=== PATIENT | female | born 1950 | race Caucasian/White ===

== ENCOUNTER 2023-03-17 09:27 | Emergency (ER) | payer MEDICARE, SELFPAY ==
--- NOTE | ~2023-03-17 | CT_ITS ---
EXAMINATION: CT CHEST WITH CONTRAST CLINICAL INFORMATION: Question of clavicular mass. COMPARISON: Chest radiographs from earlier today. TECHNIQUE: Multidetector volumetric CT imaging of the chest was obtained after the administration of 50 mL of Omnipaque 350 intravenous contrast without immediate adverse reactions. Axial MIP volume rendering provided. Sagittal and coronal reformatted images were obtained. Mild motion artifact limits evaluation. This CT examination was performed using dose optimization techniques as appropriate, variously including the following: *Automated exposure control *Adjustment of mA and/or kV according to patient size (this includes techniques or standardized protocols for targeted exams where dose is matched to indication/reason for exam; i.e. extremities or head) *Use of iterative reconstruction technique DLP: 369 mGy-cm FINDINGS: LUNGS/PLEURA/AIRWAYS: Limited secondary to respiratory motion artifact. No significant/suspicious pulmonary nodules. No focal consolidation or pleural effusions. No pneumothorax. Minimal atelectasis/scarring in the right middle lobe and lingula. The airways are patent. MEDIASTINUM: The thyroid gland is unremarkable. The thoracic aorta is unremarkable. No pericardial effusion. No mediastinal or hilar lymphadenopathy. UPPER ABDOMEN: Unremarkable. MUSCULOSKELETAL: A rudimentary left first rib is seen. Mild to moderate multilevel marginal osteophyte formation is seen. In the thoracolumbar spine most pronounced inferiorly in the thoracic spine on the right. Vertebral body fusion is seen at C7-T1. There is no acute fracture. Mild thoracic dextroscoliosis is noted. SOFT TISSUES: No significant soft tissue abnormality. CT/CT chest w IV con IMPRESSION: 1. Limited evaluation of the supraclavicular region without overt abnormality. If the patient's palpable abnormality persists or enlarges, targeted soft tissue ultrasound in this region is recommended. 2. No significant pulmonary abnormality. Routine radiographic follow-up as clinically indicated.
--- NOTE | ~2023-03-17 | US_ITS ---
EXAMINATION: US VENOUS ULTRASOUND WITH DOPPLER LOWER EXTREMITY, LEFT CLINICAL INFORMATION: Left lower extremity pain and swelling with redness. COMPARISON: None available. TECHNIQUE: Ultrasound of the deep veins is performed from the hip to the calf with compression sonography and color and pulse Doppler assessment. Spectral analysis with color-flow imaging is performed. FINDINGS: There is normal venous compression and respiratory variation and augmented flow. The visualized common femoral vein, superficial femoral vein, profunda femoral vein, popliteal vein, and the trifurcation region shows no evidence of deep venous thrombosis. Enlarged left inguinal lymph node with reniform shape measuring up to 3.3 cm in long axis. No left popliteal cyst. The subcutaneous soft tissues are unremarkable. US/US venous duplex LE LT IMPRESSION: 1. No evidence for deep venous thrombosis in the visualized veins of the left lower extremity. 2. Mildly enlarged left inguinal lymph node is nonspecific, but demonstrates overall benign features and could be reactive. Correlate with physical exam. * If these findings persist or enlarge, short-term repeat targeted soft tissue ultrasound can be performed as clinically indicated to assess for change.
--- NOTE | ~2023-03-17 | XR_ITS ---
EXAMINATION: XR CHEST CLINICAL INFORMATION: Mass in the right clavicular region. COMPARISON: None available. TECHNIQUE: 2 views of the chest were obtained. FINDINGS: The lungs are clear. There are no pleural effusions. The heart and mediastinal structures are unremarkable. Possible small soft tissue nodular densities overlying of the supraclavicular regions bilaterally. The soft tissues are otherwise unremarkable. XR/XR chest 2V IMPRESSION: 1. No acute cardiopulmonary process. 2. Small soft tissue nodular densities overlying the supraclavicular regions bilaterally are nonspecific. Given the palpable abnormality, targeted soft tissue ultrasound in this regions is recommended.
--- NOTE | ~2023-03-17 | US_ITS ---
EXAMINATION: US SOFT TISSUE RIGHT SHOULDER CLINICAL INFORMATION: Clinical or mass COMPARISON: None available. TECHNIQUE: Ultrasound of the right shoulder soft tissues is performed with high- frequency nelson-scale imaging and color Doppler. FINDINGS: The area of palpable mass in right shoulder corresponding to mid clavicle revealed ill-defined hypoechoic complex lesion at the supraclavicular region, measured approximately 3.0 x 2.8 x 2.6 cm. This area revealed cystic and solid components and shadowing calcifications. Minimal vascularity is present also. US/US soft tiss head and/or neck IMPRESSION: Unclear origin heterogeneous mass in adjacent to the area of point tenderness in the left clavicle Correlate with clinical history and CT scan.
[2023-03-17 09:30] VITALS: BP 129/60; PULSE 87; RESP 16; TEMP 36.7; O2SAT 98; BMI 38.7
--- NOTE | 2023-03-17 09:47 | ED.GENADULT ---
HPI - General Adult General Chief complaint: Skin/Abscess/Foreign Body Stated complaint: L Leg Rash Time Seen by Provider: 03/17/23 09:47 Source: patient Mode of arrival: ambulatory Limitations: no limitations History of Present Illness HPI narrative: Patient is a 72 year old assigned female at with a history of HTN presenting to the emergency department today with left lower leg pain / rash and a chest mass. Patient states that she has a left lower leg rash that hurts and appeared over night. Patient states that she also noticed a mass over her right clavicle. Patient denies any dizziness, lightheadedness, abdominal pain, nausea, vomiting, fever, chills, blurry vision, double vision, loss of vision, chest pain, difficulty breathing, shortness of breath, back pain, night sweats, pain with urination, increased urinary frequency, increased urinary urgency, blood in her urine or stool, syncope or a near syncopal episode, recent trauma or falls, bowel incontinence, bladder incontinence, bowel retention, bladder retention, or any other complaints at this time. Onset (ago): hour(s) Location: chest (right clavicle), left and lower extremity Severity: mild Relieving factors: none Exacerbating factors: none Associated symptoms: denies other symptoms Treatments prior to arrival: none Related Data Previous Rx's Medication Instructions Recorded doxycycline hyclate 100 mg tablet 100 mg PO BID 7 days #14 tabs 03/17/23 prednisone 20 mg tablet 20 mg PO DAILY 7 days #7 tabs 03/17/23 Allergies Allergy/AdvReac Type Severity Reaction Status Date / Time penicillin G [PENICILLIN G] Allergy Unknown RASH Verified 03/17/23 12:41 penicillin V Allergy Unknown rash Verified 02/17/17 00:00 Review of Systems Constitutional: Constitutional: Reports no additional constitutional complaints, Denies chills, Denies fever(s) and Denies night sweats Eyes: Eyes: Reports no additional eye complaints, Denies blurry vision, Denies change in vision, Denies diplopia, Denies eye discharge, Denies loss of vision and Denies eye pain ENT: Denies dizziness Cardiovascular: Cardiovascular: Reports no additional cardiovascular complaints, Denies chest pain, Denies lightheadedness, Denies Loss of Consciousness and Denies dyspnea Respiratory: Respiratory: Reports no additional respiratory complaints and Denies dyspnea Gastrointestinal: Gastrointestinal: Reports no additional gastrointestinal complaints, Denies abdominal pain, Denies melena, Denies hematochezia, Denies change in bowel habits and Denies change in stool character Genitourinary: Genitourinary: Denies hematuria, Denies urinary frequency, Denies dysuria, Denies urinary incontinence, Denies urinary hesitancy and Denies urinary urgency Musculoskeletal: Musculoskeletal: Reports no additional musculoskeletal complaints, Denies numbness and Denies tingling Comments: right clavicle mass Integumentary/Breasts: Comments: rash to left lower leg Neurologic: Denies dizziness, Denies loss of vision, Denies numbness and Denies tingling Psychiatric: Psychiatric: Reports no additional psychiatric complaints Endocrine: Endocrine: Reports no additional endocrine complaints Hematologic/Lymphatic: Hematologic/Lymphatic: Reports no additional hematologic/lymphatic complaints Allergic/Immunologic: Allergic/Immunologic: Reports no additional allergic/immunologic complaints PMFSH Past Medical History Attestation statement: The following information was validated with the patient. Source: old records reviewed and nursing notes reviewed Social History Social History Advance Directives: No Advance Directives Information Provided: No Physical Exam ED Vital Signs: Vital Signs - 24 hr 03/17/23 09:30 03/17/23 16:31 Temperature 98.1 F 98.0 F Pulse Rate 87 78 Respiratory Rate 16 15 Blood Pressure 129/60 130/59 L Pulse Oximetry 98 96 Oxygen Delivery Method Room Air Room Air BMI result Body Mass Index 38.7 Const General: cooperative, no acute distress, alert and awake Nutritional Appearance: well nourished Orientation/consciousness: patient oriented x3 Limitations: no limitations [facility] Head: Yes normal to inspection and Yes atraumatic Ears: hearing grossly normal bilaterally and external ears normal General nose exam: Normal external nose present, no nasal discharge noted and no epistaxis Face and sinus: Yes normal facial exam, No abrasion and No laceration Mouth: Normal oral and palatal mucosa present, no drooling and no muffled voice Eyes General: appearance normal, both eyes and all related structures Periorbital: periorbital findings normal Eyelids: Yes eyelids normal Conjunctivae: conjunctivae normal Pupils: Equal, round and reactive pupils present EOM: EOMs intact bilaterally Neck Neck: Yes normal visual inspection, Yes full ROM and Yes no lymphadenopathy Chest Other: palpable mass of the right clavicle Resp Effort & Inspection: normal respiratory effort and able to speak in complete sentences Auscultation: clear to auscultation bilaterally Cardio Rate: regular rate Rhythm: regular rhythm GI Inspection: Yes normal to inspection Neuro General: patient oriented x3 and moves all extremities Cranial nerves: Yes Equal, round and reactive pupils present Cognition (Neuro): normal cognition Motor exam (neuro): 5/5 motor strength present throughout Sensory Exam: Normal double simultaneous stimulation for sensation Coordination: [id number] test normal Extrem Other: vasculitis type rash to the left anterior lower leg General: Yes full ROM and Yes capillary refill normal Psych Appearance: grossly normal Mental Status: mental status grossly normal Affect: normal affect Attitude: cooperative Thought process: Normal thought process present Thought content: Normal thought content present Insight: Good insight present (Psych) Medications Administered Discontinued Medications Generic Name Dose Route Start Last Admin Trade Name Freq PRN Reason Stop Dose Admin Iohexol 100 ml 03/17/23 16:22 03/17/23 16:23 Iohexol 350 Mg/Ml 100 Ml Infus..Btl IV 03/17/23 16:23 65 ml ONCE ONE Administration Potassium Chloride 40 meq 03/17/23 12:04 03/17/23 12:42 Potassium Chloride Packet 20 Meq Packet PO 03/17/23 12:05 40 meq ONCE ONE Administration Medical Decision Making Medical Decision Making [facility] Narrative: Patient is a 72 year old assigned female at with a history of HTN presenting to the emergency department today with left lower leg rash and right clavicle mass. Patient's physical exam was as noted in the physical exam portion of this note. Patient's blood work showed hypokalemia but was otherwise unremarkable. Patient's left lower log US showed no acute process. Patient's chest x-ray showed no acute process however, recommended US of the area of concern. Patient's neck US showed an ill-defined hypoechoic complex lesion at the supraclavicular region thatmeasured approximately 3.0 x 2.8 x 2.6 and is cystic with solid components, shadowing calcifications, and minimal vascularity. The radiologist at that time recommended a CT scan to better evaluate the mass. Patient's chest CT showed no overt abnormality. I explained my physical exam findings as well as all test results to the patient. I answered all questions asked by the patient. Patient received PO potassium while in the department. I stressed the importance of the patient taking her medication as prescribed. I stressed the importance of the patient following up with her primary care provider and with a general surgeon for this chest mass. I stressed the importance of the patient returning to the emergency department immediately if her symptoms were to worsen or if she were to develop any dizziness, shortness of breath, difficulty breathing, chest pain, blurry vision, loss of vision, nausea, vomiting, abdominal pain, fever, chills, back pain, or any other complaints. Patient verbalized agreement and understanding with this treatment plan and discharge. Differential Diagnosis Differential Diagnoses: The differential diagnosis associated with the presentation includes Soft tissue mass of chest Vasculitis Cellulitis Hypokalemia Admission/Observation Consideration of admission/observation: Escalation of care including admission/observation considered Patient would have been admitted to the hospital had her work up had any findings where hospital admission was appropriate and her clinical presentation warranted hospital admission. Lab Data [facility] Lab Attestation statement: I reviewed the patient's lab results. My interpretation of these results are in the [facility] portion of this note. 03/17/23 11:22 03/17/23 11:22 Labs: Lab Results 03/17/23 03/17/23 03/17/23 Range/Units 11:22 11:22 11:22 WBC 7.6 (4.8-10.8) X10*3/uL RBC 3.88 L (4.20-5.50) X10*6/uL Hgb 12.4 (12.0-16.0) g/dl Hct 35.1 L (37.0-47.0) % MCV 90.5 (80.0-98.0) fL MCH 32.0 (27.0-33.0) pg MCHC 35.3 H (31.0-35.0) g/dl RDW 12.9 (11.0-16.0) % Plt Count 144 L (160-400) X10*3/uL MPV 10.9 (9.4-12.3) fL Immature Gran % (Auto) 0.3 (0.0-0.4) % Neut % (Auto) 79.1 H (45-73) % Lymph % (Auto) 9.7 L (20-40) % [place] % (Auto) 8.0 (2-11) % Eos % (Auto) 2.4 (0-4) % Baso % (Auto) 0.5 (0-2) % Lymph # (Auto) 0.7 L (1.2-4.9) X10*3/uL [place] # (Auto) 0.6 (0.1-1.2) X10*3/uL Eos # (Auto) 0.2 (0.0-0.4) X10*3/uL Baso # (Auto) 0.0 (0.0-0.2) X10*3/uL Abs Immat Gran (auto) 0.02 (0.00-0.03) X10*3/uL Absolute Neuts (auto) 6.0 (2.0-8.3) x10*3/uL Absolute Nucleated RBC 0.000 (0.0-0.012) X10*3/uL Nucleated RBC % (auto) 0.0 (0.0-0.2) /100WBC ESR 70 H (0-20) MM/HR Sodium 139 (135-145) mmol/L Potassium 3.1 L (3.3-5.1) mmol/L Chloride 104 (96-108) mmol/L Carbon Dioxide 28 (22-29) mmol/L Anion Gap 10 L (12-20) BUN 18 H (9-16) mg/dL Creatinine 0.86 (0.5-1.4) mg/dL Estim Creat Clear Calc 74.9 Estimated GFR > 60 Random Glucose 107 (60-115) mg/dL Calcium 9.4 (8.4-10.2) mg/dL Total Bilirubin 0.8 (0.0-1.0) mg/dL AST 28 (5-31) U/L ALT 32 H (0-31) U/L Alkaline Phosphatase 65 (39-117) U/L C-Reactive Protein 16.92 H (< or = 0.50) mg/dL Total Protein 6.7 (6.5-8.0) g/dL Albumin 3.1 L (3.5-5.0) g/dL Independent Interpretation I performed an independent interpretation of an: Plain X-Ray, Ultrasound and CT Scan Interpretation: My interpretation is in agreement with the radiologist's impression of these imaging studies. EXAMINATION:? US VENOUS ULTRASOUND WITH DOPPLER LOWER EXTREMITY, LEFT CLINICAL INFORMATION:? Left lower extremity pain and swelling with redness. COMPARISON:? None available. TECHNIQUE: Ultrasound of the deep veins is performed from the hip to the calf with compression sonography and color and pulse Doppler assessment. Spectral analysis with color-flow imaging is performed. FINDINGS: There is normal venous compression and respiratory variation and augmented flow. The visualized common femoral vein, superficial femoral vein, profunda femoral vein, popliteal vein, and the trifurcation region shows no evidence of deep venous thrombosis. Enlarged left inguinal lymph node with reniform shape measuring up to 3.3 cm in long axis. No left popliteal cyst. The subcutaneous soft tissues are unremarkable. US/US venous duplex LE IMPRESSION: ? 1. No evidence for deep venous thrombosis in the visualized veins of the left lower extremity. 2. Mildly enlarged left inguinal lymph node is nonspecific, but demonstrates overall benign features and could be reactive. Correlate with physical exam. * If these findings persist or enlarge, short-term repeat targeted soft tissue ultrasound can be performed as clinically indicated to assess for change. Dictated By: Huber Bowens MD Signed By: Electronically signed by Huber Bowens MD 03/17/23 1051 EXAMINATION: XR CHEST CLINICAL INFORMATION: Mass in the right clavicular region. COMPARISON: None available. TECHNIQUE: 2 views of the chest were obtained. FINDINGS: The lungs are clear. There are no pleural effusions. The heart and mediastinal structures are unremarkable. Possible small soft tissue nodular densities overlying of the supraclavicular regions bilaterally. The soft tissues are otherwise unremarkable. XR/XR chest 2V IMPRESSION: 1. No acute cardiopulmonary process. 2. Small soft tissue nodular densities overlying the supraclavicular regions bilaterally are nonspecific. Given the palpable abnormality, targeted soft tissue ultrasound in this regions is recommended. Dictated By: Huber Bowens MD Signed By: Electronically signed by Huber Bowens MD 03/17/23 1222 EXAMINATION: US SOFT TISSUE RIGHT SHOULDER CLINICAL INFORMATION: Clinical or mass COMPARISON: None available. TECHNIQUE: Ultrasound of the right shoulder soft tissues is performed with high- frequency nelson-scale imaging and color Doppler. FINDINGS: The area of palpable mass in right shoulder corresponding to mid clavicle revealed ill-defined hypoechoic complex lesion at the supraclavicular region, measured approximately 3.0 x 2.8 x 2.6 cm. This area revealed cystic and solid components and shadowing calcifications. Minimal vascularity is present also. US/US soft tiss head and/or neck IMPRESSION: Unclear origin heterogeneous mass in adjacent to the area of point tenderness in the left clavicle Correlate with clinical history and CT scan. Dictated By: Dimitrios Wallace MD Signed By: Electronically signed by Dimitrios Wallace MD 03/17/23 1426 EXAMINATION: CT CHEST WITH CONTRAST CLINICAL INFORMATION: Question of clavicular mass.? COMPARISON: Chest radiographs from earlier today. TECHNIQUE: Multidetector volumetric CT imaging of the chest was obtained after the administration of 50 mL of Omnipaque 350 intravenous contrast without immediate adverse reactions. Axial MIP volume rendering provided. Sagittal and coronal reformatted images were obtained. Mild motion artifact limits evaluation. This CT examination was performed using dose optimization techniques as appropriate, variously including the following: *Automated exposure control *Adjustment of mA and/or kV according to patient size (this includes techniques or standardized protocols for targeted exams where dose is matched to indication/reason for exam; i.e. extremities or head) *Use of iterative reconstruction technique DLP: 369 mGy-cm FINDINGS: LUNGS/PLEURA/AIRWAYS: Limited secondary to respiratory motion artifact. No significant/suspicious pulmonary nodules. No focal consolidation or pleural effusions. No pneumothorax. Minimal atelectasis/scarring in the right middle lobe and lingula. The airways are patent. MEDIASTINUM: The thyroid gland is unremarkable. The thoracic aorta is unremarkable. No pericardial effusion. No mediastinal or hilar lymphadenopathy. UPPER ABDOMEN: Unremarkable. MUSCULOSKELETAL: A rudimentary left first rib is seen. Mild to moderate multilevel marginal osteophyte formation is seen. In the thoracolumbar spine most pronounced inferiorly in the thoracic spine on the right. Vertebral body fusion is seen at C7-T1. There is no acute fracture. Mild thoracic dextroscoliosis is noted. SOFT TISSUES: No significant soft tissue abnormality. CT/CT chest w IV con IMPRESSION: 1. Limited evaluation of the supraclavicular region without overt abnormality. If the patient's palpable abnormality persists or enlarges, targeted soft tissue ultrasound in this region is recommended. 2. No significant pulmonary abnormality. Routine radiographic follow-up as clinically indicated. Dictated By: Huber Bowens MD Signed By: Electronically signed by Huber Bowens MD 03/17/23 3270 Radiology Impression Discussion of test interpretation with radiology: I have reviewed the radiologist's reading. Prescription Management I considered prescription management with: Antibiotic (patient prescribed an antibiotic to cover possible infectious process of the left lower leg) and Other (patient prescribed an oral steroid) Chronic Conditions Patient?s care impacted by: Hypertension Critical Care Time Critical Care Time Critical Care Time: Yes Total Critical Care Time: 40 Attestation: I spent 40 minutes of Critical Care Time with this patient. This does not include time spent on separately reported billable procedures. Discharge Plan Discharge Clinical Impression: Rash, Cellulitis, Mass of soft tissue, Acute hypokalemia Patient Disposition: Home, Self-Care Instructions: Potassium Content of Foods List (ED), Hypokalemia (ED), Acute Rash (ED), Soft Tissue Mass (ED) Additional Instructions: Follow up with your primary care provider and with a general surgeon for your soft tissue mass. Return to the emergency department immediately if your symptoms worsen or if you develop any dizziness, shortness of breath, difficulty breathing, chest pain, blurry vision, loss of vision, nausea, vomiting, abdominal pain, fever, chills, back pain, or any other complaints. Prescriptions: New prednisone 20 mg tablet 20 mg PO DAILY 7 Days Qty: 7 0RF doxycycline hyclate 100 mg tablet 100 mg PO BID 7 Days Qty: 14 0RF Referrals: [facility] [place] General Surgeons [Provider Group] (Call to establish and follow up with a general surgeon to discuss your soft tissue mass.) Tez Sanabria MD [Primary Care Provider] - Interventions: ED Discharge Assessment Last Done: 03/17/23 17:30 Print Language: [place]an
[2023-03-17 11:25] LABS: MANUAL DIFF FLAG NO
[2023-03-17 11:27] LABS: Basophils Percent Auto 0.5 % (0-2); Eosinophils Absolute Auto 0.2 X10*3/uL (0.0-0.4); Eosinophils Percent Auto 2.4 % (0-4); Hematocrit 35.1 % (37.0-47.0); Hemoglobin 12.4 g/dl (12.0-16.0); Imm Gran Abs Auto 0.02 X10*3/uL (0.00-0.03); Imm Gran Pct Auto 0.3 % (0.0-0.4); Lymphocytes Absolute Auto 0.7 X10*3/uL (1.2-4.9); Lymphocytes Percent Auto 9.7 % (20-40); Mean Corpuscular HGB Conc 35.3 g/dl (31.0-35.0); Mean Corpuscular Volume 90.5 fL (80.0-98.0); Mean Platelet Volume 10.9 fL (9.4-12.3); Monocytes Absolute Auto 0.6 X10*3/uL (0.1-1.2); Neutrophils Percent Auto 79.1 % (45-73); Platelet Count 144 X10*3/uL (160-400); Red Blood Count 3.88 X10*6/uL (4.20-5.50); Red Cell Distribution Width 12.9 % (11.0-16.0); White Blood Count 7.6 X10*3/uL (4.8-10.8)
[2023-03-17 11:43] LABS: Alanine Aminotransferase 32 U/L (0-31); Albumin Level 3.1 g/dL (3.5-5.0); Alkaline Phosphatase 65 U/L (39-117); Anion Gap 10 (12-20); Aspartate Amino Transferase 28 U/L (5-31); Bilirubin Total 0.8 mg/dL (0.0-1.0); Blood Urea Nitrogen 18 mg/dL (9-16); C Reactive Protein 16.92 mg/dL (< or = 0.50); Calcium 9.4 mg/dL (8.4-10.2); Carbon Dioxide 28 mmol/L (22-29); Chloride 104 mmol/L (96-108); Creatinine Clr Calc Pharmacy 74.9; Estimated Glomerular Filt Rate > 60; Glucose Random 107 mg/dL (60-115); Potassium 3.1 mmol/L (3.3-5.1); Sodium 139 mmol/L (135-145); Total Protein 6.7 g/dL (6.5-8.0)
[2023-03-17 12:11] LABS: Erythrocyte Sedimentation Rate 70 MM/HR (0-20)
[2023-03-17] MEDS: Potassium Chloride Packet 20 MEQ PACKET 40 MEQ PO (12:42)
[2023-03-17] MEDS: iohexoL 350 MG/ML 100 ML INFUS..BTL IV (16:23)
[2023-03-17 16:31] VITALS: BP 130/59; PULSE 78; RESP 15; TEMP 36.7; O2SAT 96
== END 2023-03-17 17:30 | disposition home or self-care (01) ==
PROVIDERS: Physician Assistant Medical; Emergency Provider Emergency Medicine; PCP Internal Medicine
DX: R21 Rash and other nonspecific skin eruption (principal); R07.89 Other chest pain; M25.511 Pain in right shoulder; E87.6 Hypokalemia; R60.0 Localized edema; M79.605 Pain in left leg; M54.2 Cervicalgia; Z79.899 Other long term (current) drug therapy
CPT/HCPCS: 36415; 71046; 71260; 76536; 80053; 85025; 85652; 86140; 93971; 99284; Q9967

== ENCOUNTER 2023-03-23 08:52 | Outpatient (AMB) | payer MEDICARE, SELFPAY ==
--- NOTE | 2023-03-23 08:26 | MHC.OFFVIS ---
Intake Vital Signs 03/23/23 08:40 Height 5 ft 6 in Weight 246 lb BMI 39.7 BP 140/80 H Blood Pressure Location Lt brachial Position Sitting Pulse 71 Intake Visit Reasons: mass of neck ? FNA (ER on 03/17/23) Intake Note: Patient is seen in office for evaluation and treatment of a mass of the neck. 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 Well Directional Required: No Accompanied by: Self / Same As Patient Allergies penicillin G [PENICILLIN G] Allergy (Unknown, Verified 03/23/23 08:37) RASH penicillin V Allergy (Unknown, Verified 03/23/23 08:37) rash Medication List - Last Reconciled 03/23/23 by Wilberto Quezada MD amlodipine 5 mg PO DAILY doxycycline hyclate 100 mg PO BID 7 days losartan-hydrochlorothiazide 100-25 mg 1 tab PO DAILY prednisone 20 mg PO DAILY 7 days sertraline 25 mg PO DAILY HPI HPI Comments History of Present Illness Details 72-year-old female patient presenting with complaints of swelling in the right neck for several weeks duration. She denies pain but does report sensitivity when the site is touched. She denies any injuries associated with the neck. She also denies any intraoral infections or infection surrounding the area of swelling. Workup with an ultrasound revealed a complex cystic lesion with minimal vascularity and indiscrete margins. This is associated with a prominent proximal clavicle head. She presents today for needle aspiration. [facility] Surgical History History of cholecystectomy History of tonsillectomy Family History Sister Lung cancer Sister Lung cancer Social History Alcohol intake: current Patient Tobacco Use Status: Never used Tobacco Review of Systems Const All systems reviewed & are unremarkable except as noted in HPI and below Denies chills, Denies fever(s), Denies headache(s), Denies poor appetite and Denies weakness ENT Denies headache(s) Card Denies chest pain, Denies irregular heart rhythm, Denies palpitations and Denies dyspnea Resp Denies cough, Denies excessive phlegm production and Denies dyspnea GI Denies abdominal pain, Denies bloating, Denies change in bowel habits, Denies constipation, Denies heartburn, Denies diarrhea, Denies nausea and Denies vomiting Denies urinary frequency Musc Denies back pain, Denies muscle weakness and Denies numbness Skin/Breast Denies changing lesions and Denies unusual bruising Neuro Denies headache(s), Denies numbness, Denies paresthesias and Denies weakness Psych Denies anxiety and Denies depression Endo Denies palpitations Calos/Lymph Denies lymphadenopathy Physical Exam Vital Signs: Last Vital Signs Pulse 71 03/23/23 08:40 BP 140/80 H 03/23/23 08:40 BMI result Body Mass Index 39.7 Const General: cooperative and no acute distress Nutritional Appearance: well nourished Orientation/consciousness: patient oriented x3 Limitations: no limitations HEENT Head: Yes normocephalic and Yes atraumatic Ears: hearing grossly normal bilaterally Chest Chest/axillae images: 1. Area of fullness noted in the right clavicular head medially. This is nonmobile and confirmed as the clavicular head on CT. I am unable to clearly palpate a soft tissue mass beyond this therefore and not comfortable performing a needle aspiration on this lesion seen on ultrasound. Resp Effort & Inspection: normal respiratory effort, no audible wheezes, no cough and no respiratory distress Cardio Jugular venous distension: no JVD GI Inspection: Yes normal to inspection Skin Other: Warm, dry, no rash Neuro General: patient oriented x3 Extrem General: Yes no clubbing, cyanosis or edema Assessment & Plan Assessment & Plan (1) Mass of soft tissue: Code(s): M79.89 - Other specified soft tissue disorders Plan 72-year-old female patient presenting with a soft tissue mass noted on ultrasound in the right neck adjacent to the clavicular head. On examination this is not clearly palpable therefore I recommended ultrasound-guided aspiration. She expressed understanding and agrees with the plan. I recommend she return following this study to review the results and discuss treatment options. Orders: Orders US guided fine needle asp Today M79.89 - Other specified soft tissue disorders Coding Level of Care Code New Pt Level 4 (91804) Diagnoses Mass of soft tissue M79.89
[2023-03-23 08:40] VITALS: BP 140/80; PULSE 71; BMI 39.7
== END 2023-03-23 08:59 | disposition home or self-care (01) ==
PROVIDERS: PCP Internal Medicine; Visit Provider Surgery
DX: M79.89 Other specified soft tissue disorders (principal); R22.1 Localized swelling, mass and lump, neck
CPT/HCPCS: 99204

== ENCOUNTER → 2023-03-23 08:52 | Outpatient (BNVA) | payer MEDICARE, SELFPAY | PROVIDERS: PCP Internal Medicine; Visit Provider Surgery | DX: M79.89 Other specified soft tissue disorders (principal) | CPT/HCPCS: 99202 ==

== ENCOUNTER 2023-04-12 14:01 | Outpatient (REF) | payer MEDICARE, SELFPAY ==
--- NOTE | ~2023-04-12 | US_ITS ---
EXAMINATION: US SOFT TISSUE NECK CLINICAL INFORMATION: Abnormal mass right neck COMPARISON: None available. TECHNIQUE: Ultrasound of the neck soft tissues is performed with high- frequency nelson-scale imaging and color Doppler. FINDINGS: Ultrasound imaging prior to biopsy of the right neck mass reveals a hypertrophied right sternoclavicular joint with increased soft tissue swelling likely cellulitis when compared to left side. There is no palpable lesion and no discernible lesion to biopsy or aspirate. The exam US/US soft tiss head and/or neck IMPRESSION: Ultrasound-guided right neck/sternoclavicular joint lesion biopsy was canceled as no lesion was seen however there is hypertrophic right seminal clavicular junction and enlargement of the synovium likely secondary to synovitis or degenerative hypertrophied right SC joint.
== END 2023-04-12 14:02 | disposition home or self-care (01) ==
LOC: HO.US 14:01
PROVIDERS: PCP Internal Medicine; Visit Provider Surgery
DX: M79.89 Other specified soft tissue disorders (principal)
CPT/HCPCS: 76536

== ENCOUNTER 2023-04-20 09:07 | Outpatient (AMB) | payer MEDICARE, SELFPAY ==
--- NOTE | 2023-04-20 09:26 | MHC.OFFVIS ---
Intake Vital Signs 04/20/23 09:32 Height 5 ft 6 in Weight 246 lb BMI 39.7 BP 140/80 H Blood Pressure Location Lt brachial Position Sitting Intake Visit Reasons: Mass of soft tissue, US results Intake Note: Patient is seen in office for ultrasound results, following mass of the neck. 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 She denies pain but does report sensitivity when the site is touched. She denies any injuries associated with the neck. She also denies any intraoral infections or infection surrounding the area of swelling. Workup with an ultrasound revealed a complex cystic lesion with minimal vascularity and indiscrete margins. This is associated with a prominent proximal clavicle head. Previous examination was negative for a discrete palpable mass therefore she was sent for an ultrasound-guided core biopsy. Subsequent follow-up ultrasound revealed: Ultrasound-guided right neck/sternoclavicular joint lesion biopsy was canceled as no lesion was seen however there is hypertrophic right seminal clavicular junction and enlargement of the synovium likely secondary to synovitis or degenerative hypertrophied right SC joint. [facility] Surgical History History of tonsillectomy History of cholecystectomy Family History Sister Lung cancer Sister Lung cancer Social History Alcohol intake: current Patient Tobacco Use Status: Never used Tobacco Review of Systems Const All systems reviewed & are unremarkable except as noted in HPI and below Denies chills, Denies fever(s), Denies headache(s), Denies poor appetite and Denies weakness ENT Denies headache(s) Card Denies chest pain, Denies irregular heart rhythm, Denies palpitations and Denies dyspnea Resp Denies cough, Denies excessive phlegm production and Denies dyspnea GI Denies abdominal pain, Denies bloating, Denies change in bowel habits, Denies constipation, Denies heartburn, Denies diarrhea, Denies nausea and Denies vomiting Denies urinary frequency Musc Denies back pain, Denies muscle weakness and Denies numbness Skin/Breast Denies changing lesions and Denies unusual bruising Neuro Denies headache(s), Denies numbness, Denies paresthesias and Denies weakness Psych Denies anxiety and Denies depression Endo Denies palpitations Calos/Lymph Denies lymphadenopathy Physical Exam Vital Signs: Last Vital Signs BP 140/80 H 04/20/23 09:32 BMI result Body Mass Index 39.7 Const General: cooperative and no acute distress Nutritional Appearance: well nourished Orientation/consciousness: patient oriented x3 Limitations: no limitations HEENT Head: Yes normocephalic and Yes atraumatic Ears: hearing grossly normal bilaterally Resp Effort & Inspection: normal respiratory effort, no audible wheezes, no cough and no respiratory distress Cardio Jugular venous distension: no JVD GI Inspection: Yes normal to inspection Skin Other: Warm, dry, no rash Neuro General: patient oriented x3 Extrem General: Yes no clubbing, cyanosis or edema Assessment & Plan Assessment & Plan (1) Mass of soft tissue: Code(s): M79.89 - Other specified soft tissue disorders Plan 72-year-old female patient returning following an attempted ultrasound-guided core biopsy. This did not reveal a suspicious mass rather hypertrophy of the sternoclavicular junction. No surgical intervention is recommended at this time. She should follow up as needed. Coding Level of Care Code Est Pt Level 3 (90468) Diagnoses Mass of soft tissue M79.89
[2023-04-20 09:32] VITALS: BP 140/80; BMI 39.7
== END 2023-04-20 09:37 | disposition home or self-care (01) ==
PROVIDERS: PCP Internal Medicine; Visit Provider Surgery
DX: M79.89 Other specified soft tissue disorders (principal)
CPT/HCPCS: 99213

== ENCOUNTER → 2023-04-20 09:07 | Outpatient (BNVA) | payer MEDICARE, SELFPAY | PROVIDERS: PCP Internal Medicine; Visit Provider Surgery | DX: M79.89 Other specified soft tissue disorders (principal) | CPT/HCPCS: 99212 ==

== ENCOUNTER 2025-01-15 13:11 | Outpatient (AMB) | payer MEDICARE, MEDICAID, SELFPAY ==
--- NOTE | 2025-01-15 13:19 | A.OFFVIS_ITS ---
Intake Visit Reasons: urinary incontinence Intake Note: New patient presents today for initial visit for urinary incontinence Urology Medication:None Blood Thinner:None Antibiotic Allergies:PCN PVR:0ml Allergies penicillin G [PENICILLIN G] Allergy (Unknown, Verified 01/15/25 13:25) RASH penicillin V Allergy (Unknown, Verified 01/15/25 13:25) rash HPI Comments Details: History of Present Illness - The patient is a 74-year-old female presenting with urinary incontinence. - Reports of urgency and occasional fecal incontinence, with some improvement noted recently. - Family history includes bladder cancer in her brother. - Recent medical history includes an ablation for atrial fibrillation. Urinary Symptoms Review - Urgency and lack of control leading to frequent bathroom trips. - Occasional fecal incontinence reported. - Improvement in bladder control over the past month, with reduced use of pads. - Symptoms include running to the bathroom when in public places like stores. Results - Urinalysis: Leukocytes 1+, Blood 1+ - Microscopic hematuria noted in urine analysis. Discussion Notes I discussed with the patient the plan to send her urine for culture and cytology to rule out infection and other potential causes of her symptoms. We talked about the possibility of bladder spasms and weak muscles causing her symptoms. I advised her to avoid bladder irritants like caffeine and carbonated drinks. We also discussed scheduling an ultrasound and a follow-up cystoscopy to further evaluate her condition. I emphasized the importance of retraining her bladder by going to the bathroom at regular intervals rather than waiting for the urge. Plan - Urine will be sent for culture and cytology to check for infection and abnormal cells. - An ultrasound of the kidneys and bladder will be scheduled, followed by a cystoscopy for further evaluation. - The patient is advised to avoid bladder irritants like caffeine and carbonated drinks. - Bladder retraining is recommended by following a regular voiding schedule. Patient Instructions - Avoid caffeine and carbonated drinks to prevent bladder irritation. - Follow a regular schedule for bathroom visits to help retrain your bladder. - Await contact from radiology for scheduling your ultrasound appointment. - Follow up with the clinic after your ultrasound for further evaluation. Patient was informed and verbally consented to the use of an ambient scribe for clinic note documentation during this visit. [facility] Surgical History History of tonsillectomy History of cholecystectomy Family History Sister Lung cancer Sister Lung cancer Social History Alcohol intake: current Patient Tobacco Use Status: Never used Tobacco Office Procedures Post Void Residual Post Residual Void Post Void Residual (PVR): 0 [id number] Void Residual by ultrasound Results AMB Urinalysis, Automated UA Leukoctes 70 Silverio/uL Last Edit by Paulina Lee on 01/15/25 16:25 UA Nitrite Negative Last Edit by Paulina Lee on 01/15/25 16:25 UA Urobilinogen 3.5 mg/dL Last Edit by Paulina Lee on 01/15/25 16:25 UA Protein 0 mg/dL Last Edit by Paulina Lee on 01/15/25 16:25 UA pH 6.0 Last Edit by aPulina Lee on 01/15/25 16:25 UA Blood 25 Zachery/uL Last Edit by Paulina Lee on 01/15/25 16:25 UA Specific [place] 1.010 Last Edit by Paulina Lee on 01/15/25 16:25 UA Ketone Negative Last Edit by Paulina Lee on 01/15/25 16:25 UA Bilirubin 0 mg/dL Last Edit by Paulina Lee on 01/15/25 16:25 UA Glucose 0 mg/dL Last Edit by Paulina Lee on 01/15/25 16:25 Assessment & Plan Assessment & Plan Orders: Orders Urine Culture Today N39.0 - Urinary tract infection, site not specified AMB Urinalysis Automated Today Z13.9 - Encounter for screening, unspecified AMB Post Void Residual by ultrasound Today N39.41 - Urge incontinence Urine Cytology Today N39.0 - Urinary tract infection, site not specified Coding CPT Codes Post Residual Void - PVR CPT Code: [id number] Void Residual by ultrasound ([id number])
--- OUTSIDE RECORDS SUMMARY | 2025-01-15 14:39 | XMS_ITS | Clinical Summary ---
Author Organization [employer] Address [address] [place] [address] Care Team Providers Care Shoe Sprayer Name Role Phone Unavailable Primary Care Provider Unavailabl e Immunizations Immunization Administration Dates Next Due Influenza, seasonal, injectable, preservative fr ee 04/19/2024 Pfizer Covid-19 Vaccine 12+ 04/19/2024 Social History Tobacco Use Types Packs/Day Years Used Date Smoking Tobacco: Never Assessed Comments Unknown Sex and Gender Information Value Date Recorded Sex Assigned at Female 04/20/2024 8:32 AM EDT Legal Sex Female 8:30 AM EDT Gender Identity Female 04/20/2024 8:32 AM EDT Sexual Orientation Choose not to disclose 2023 8:32 AM EDT Plan of Treatment Health Maintenance Due Date Last Done Comments CT Colonography 1951 Colonoscopy 1951 Colorectal Cancer Screening 1951 Depression Screening 1951 FIT DNA/Cologuard 1951 FIT 1951 FOBT 1951 Lipid Panel 1950 SDOH Screening 1950 Sigmoidoscopy 1951 Alcohol/Substance Use Screening 1963 Tobacco Screening 1963 Hepatitis C Screening 12/10/1969 Mammogram 1991 RSV Patients and Patients Aged 60 years or older (1 - Risk 60-74 years 1-dose series) 2011 Zoster Vaccines (1 of 2) 07/18/2017 05/23/2017, 09/2016 COVID-19 Vaccine (7 - Moderna risk 2023- season) 2024 04/19/2024, 05/04/2023, 11/20/2021, Additional history exists DTaP/Tdap/Td Vaccines (3 - Td or Tdap) 02/25/2030 02/26/2020, 02/13/2010, 09/02/1999 Pneumococcal Vaccine: 50+ Years Completed 01/06/2023, 05/16/2020, 08/20/2017, Additional history exists Influenza Vaccine Completed 04/19/2024, , 05/03/2023, Additional history exists HIB Vaccines Aged Out No longer eligi ble based on patient's age to complete this topic HPV Vaccines Aged Out No longer eligi ble based on patient's age to complete this topic Hepatitis A Vaccines Aged Out No long er eligible based on patient's age to complete this topic Hepatitis B Vaccines Aged Out No long er eligible based on patient's age to complete this topic IPV Vaccines Aged Out No longer eligi ble based on patient's age to complete this topic Meningococcal B Vaccine Aged Out No l onger eligible based on patient's age to complete this topic Meningococcal Vaccine Aged Out No romulo guy eligible based on patient's age to complete this topic RSV under 20 months Aged Out No longe r eligible based on patient's age to complete this topic Rotavirus Vaccines Aged Out No longer eligible based on patient's age to complete this topic Insurance [facility] MED CARE MEDICARE
== END 2025-01-15 14:10 | disposition home or self-care (01) ==
PROVIDERS: PCP Internal Medicine; Visit Provider Urology
DX: Z13.9 Encounter for screening, unspecified (principal)

== ENCOUNTER 2025-01-15 13:11 | Outpatient (REF) | payer MEDICARE, SELFPAY ==
[2025-01-15 16:48] LABS: Urine Cytology See Pathology rpt
== END 2025-01-15 13:12 | disposition home or self-care (01) ==
LOC: HO.LAB 13:11
PROVIDERS: PCP Internal Medicine; Visit Provider Urology
DX: N39.0 Urinary tract infection, site not specified (principal); N39.41 Urge incontinence
CPT/HCPCS: 51798; 81003; 87086; 88112

== ENCOUNTER 2025-02-23 13:46 | Outpatient (REF) | payer MEDICARE, SELFPAY ==
--- NOTE | ~2025-02-23 | US_ITS ---
EXAMINATION: US RETROPERITONEUM HISTORY: N39.0 - Urinary tract infection, site not specified TECHNIQUE: Real-time grayscale ultrasound imaging of the kidneys was performed and images were reviewed. COMPARISON: There are no prior studies available for comparison. FINDINGS: Right kidney: The right kidney measures 10.4 x 5.8 x 4.8 cm. Renal parenchymal echotexture and thickness are normal. There are no masses. There is no hydronephrosis or renal calculi. Left Kidney: The left kidney measures 11.0 x 4.6 x 4.6 cm. Renal parenchymal echotexture and thickness are normal. There are no masses. No calculi are identified. However, there is mild hydronephrosis. The urinary bladder is unremarkable. Bilateral ureteral jets are identified. Before voiding, the urinary bladder measured 6.9 x 8.2 x 9.1 cm, for an estimated volume of 269 mL. After voiding, the urinary bladder measured 2.4 x 1.2 x 4.6 cm, for an estimated volume of 6.7 mL. US/US retroperitoneal comp IMPRESSION: 1. Mild left hydronephrosis. Otherwise unremarkable retroperitoneal ultrasound. If further imaging is desired, CT could be performed. 2. Post void bladder residual of 6.7 mL. Electronically signed by: Bob Barroso MD 02/23/2025 02:33 PM EDT
--- OUTSIDE RECORDS SUMMARY | 2025-02-23 13:49 | XMS_ITS | Clinical Summary ---
Author Organization [employer] Address [address] [place] [address] Care Team Providers Care Control Tower Operator Name Role Phone Unavailable Primary Care Provider [...] 09/2016 COVID-19 Vaccine (7 - Moderna risk season) 2024 04/19/2024, 05/04/2023, 11/20/2021, Additional history exists Influenza Vaccine (#1) 2025 , 04/19/2024, 05/03/2023, Additional history exists DTaP/Tdap/Td Vaccines (3 - Td or Tdap) 02/25/2030 02/26/2020, 02/13/2010, 09/02/1999 Pneumococcal Vaccine: 50+ Years Completed 01/06/2023, 05/16/2020, 08/20/2017, Additional history exists HIB Vaccines Aged Out [...] patient's age to complete this topic Insurance [facility] MED C[facility] MEDICARE
== END 2025-02-23 13:47 | disposition home or self-care (01) ==
LOC: HO.US 13:46
PROVIDERS: PCP Internal Medicine; Visit Provider Urology
DX: N39.0 Urinary tract infection, site not specified (principal)
CPT/HCPCS: 76770

== ENCOUNTER → 2025-02-23 13:47 | Outpatient (BNV) | payer MEDICARE, SELFPAY | PROVIDERS: PCP Internal Medicine; Visit Provider Radiology Diagnostic Radiology | DX: N39.0 Urinary tract infection, site not specified (principal); R39.14 Feeling of incomplete bladder emptying | CPT/HCPCS: 76770 ==

== ENCOUNTER 2025-03-02 14:13 | Outpatient (AMB) | payer MEDICARE, SELFPAY ==
--- OUTSIDE RECORDS SUMMARY | 2025-03-02 14:15 | XMS_ITS | Clinical Summary ---
Author Organization [employer] Address [address] [place] [address] Care Team Providers Care Managing Jeweler Name Role Phone Unavailable Primary Care Provider [...] patient's age to complete this topic Insurance [facility] MED CARE MEDICARE
--- NOTE | 2025-03-02 14:41 | A.OFFVIS_ITS ---
Intake Visit Reasons: Cysto/US Intake Note: Patient presents today for cysto/US * Retroperitoneum US 02/23 Urology Medication:None Blood Thinner:None Antibiotic Allergies:PCN Lot #:[id number] Exp: 08-06-27 Allergies penicillin G (PENICILLIN G) Allergy (Unknown, Verified 03/02/25 14:43) RASH penicillin V Allergy (Unknown, Verified 03/02/25 14:43) rash HPI Comments Details: 03/02/25--here for office cystoscopy. The patient has lower urinary tract symptoms of urgency with bladder leakage. Workup included renal and bladder ultrasound findings within normal limits. Office cystoscopy today there is prominent vasculature with minimal thrombosed vessels noted which is may be related to the microscopic hematuria. Bladder wall thickening also noted and may be related to bladder spasms contributing to her urge incontinence. The patient wants to hold on medication for now she has been working on retraining bladder with timed voiding. Follow-up with nurse practitioner in 10 months. Results - Cystoscopy: Mild bladder wall thickening and prominent vasculature observed. - US renal-02/23/25: Mild left hydronephrosis. No calculi, Otherwise unremarkable Plan - Schedule follow-up with nurse practitioner in 10 months for ongoing monitoring. 01/15/25 - The patient is a 74-year-old female presenting with urinary incontinence. - Reports of urgency and occasional fecal incontinence, with some improvement noted recently. - Family history includes bladder cancer in her brother. - Recent medical history includes an ablation for atrial fibrillation. Urinary Symptoms Review - Urgency and lack of control leading to frequent bathroom trips. - Occasional fecal incontinence reported. - Improvement in bladder control over the past month, with reduced use of pads. - Symptoms include running to the bathroom when in public places like stores. Results - Urinalysis: Leukocytes 1+, Blood 1+ - Microscopic hematuria noted in urine analysis. Plan - Urine will be sent for culture and cytology to check for infection and abnormal cells. - An ultrasound of the kidneys and bladder will be scheduled, followed by a cystoscopy for further evaluation. - The patient is advised to avoid bladder irritants like caffeine and carbonated drinks. - Bladder retraining is recommended by following a regular voiding schedule. [facility] Surgical History History of tonsillectomy History of cholecystectomy Family History Sister Lung cancer Sister Lung cancer Social History Alcohol intake: current Patient Tobacco Use Status: Never used Tobacco Office Procedures Cystoscopy Consent Discussed risk and benefit or proposed procedure with the patient. Information consent for procedure given to the patient. Discussed technical aspects, risks, benefits and alternatives in full. Addressed all of the patient's questions and concerns regarding the procedure. The patient demonstrated knowledge and understanding. They wish to proceed with this procedure. Preparation The patient was prepped in the usual manner. A customer service advisor was present and in the room. Genitalia was prepped with betadine solution in a sterile manner. Lidocaine Jelly 2% was placed into the urethra and 16Fr flexible Olympus cystoscope was inserted into the meatus after adequate lubrication. Procedure Time out per protocol performed. Speculum used as indicated for adequate visualization of urethra, the flexible cystoscope is passed transurethrally: The bladder was inspected in its entirety with utilization retroflexion displaying: Tumor(s): no suspicious bladder lesions visualized Trabeculation: Mild to Moderate Mucosal Erthema: mild Orifices: normal shape and position Urethra: normal Cystoscopy findings: prominent vasculature with minimal thrombosed vessels noted, no suspicious bladder lesions visualized [id number] DISPOSABLE SCOPE URO-G FLEXIBLE SCOPE Procedure code (CPT) selection complete Office Meds lidocaine HCl 2 % mucosal jelly in applicator Performing Provider: Pauline Tomlinson MD Performing Location: [facility] Administered by: Jeaneth Price RN on 03/02/25 15:03 Dose Route Admin Location Dispensed Lot Number Expiration Date NDC [employer] 10 mL intra-urethral 20 mL ciprofloxacin HCl 500 mg tablet Performing Provider: Pauline Tomlinson MD Performing Location: [facility] Administered by: Jeaneth Price RN on 03/02/25 15:03 Dose Route Admin Location Dispensed Lot Number Expiration Date NDC [employer] 500 mg PO 1 tab phenazopyridine 200 mg tablet Performing Provider: Pauline Tomlinson MD Performing Location: [facility] [place] Administered by: Jeaneth Price RN on 03/02/25 15:03 Dose Route Admin Location Dispensed Lot Number Expiration Date NDC [employer] 200 mg PO 1 tab Results AMB Urinalysis, Automated UA Leukoctes 0 Silverio/uL Last Edit by Paulina Lee on 03/02/25 16:59 UA Nitrite Negative Last Edit by Crystal Lee on 03/02/25 16:59 UA Urobilinogen 3.5 mg/dL Last Edit by Crystal Lee on 03/02/25 16:59 UA Protein 0 mg/dL Last Edit by Crystal Lee on 03/02/25 16:59 UA pH 5.0 Last Edit by Crystal Lee on 03/02/25 16:59 UA Blood 10 Zachery/uL Last Edit by Crystal Lee on 03/02/25 16:59 UA Specific Henderson 1.015 Last Edit by Crystal Lee on 03/02/25 16:59 UA Ketone Negative Last Edit by Crystal Lee on 03/02/25 16:59 UA Bilirubin 0 mg/dL Last Edit by Crystal Lee on 03/02/25 16:59 UA Glucose 0 mg/dL Last Edit by Crystal Lee on 03/02/25 16:59 Results Reviewed Results Reviewed: Laboratory Last Values Urine pH (Auto) 5.0 03/02/25 15:54 Specific Henderson (Auto) 1.015 03/02/25 15:54 Urine Protein (Auto) 0 mg/dL 03/02/25 15:54 Glucose (UA)(Auto) 0 mg/dL 03/02/25 15:54 Urine Ketones (Auto) Negative 03/02/25 15:54 Urine Blood (Auto) 10 Zachery/uL 03/02/25 15:54 Urine Nitrite (Auto) Negative 03/02/25 15:54 Urine Bilirubin (Auto) 0 mg/dL 03/02/25 15:54 Urine Urobilinogen (Auto) 3.5 mg/dL 03/02/25 15:54 Leukocyte Esterase (Auto) 0 Silverio/uL 03/02/25 15:54 Date of Service: 02/23/25 EXAMINATION: US RETROPERITONEUM HISTORY: N39.0 - Urinary tract infection, site not specified TECHNIQUE: Real-time grayscale ultrasound imaging of the kidneys was performed and images were reviewed. COMPARISON: There are no prior studies available for comparison. FINDINGS: Right kidney: The right kidney measures 10.4 x 5.8 x 4.8 cm. Renal parenchymal echotexture and thickness are normal. There are no masses. There is no hydronephrosis or renal calculi. Left Kidney: The left kidney measures 11.0 x 4.6 x 4.6 cm. Renal parenchymal echotexture and thickness are normal. There are no masses. No calculi are identified. However, there is mild hydronephrosis. The urinary bladder is unremarkable. Bilateral ureteral jets are identified. Before voiding, the urinary bladder measured 6.9 x 8.2 x 9.1 cm, for an estimated volume of 269 mL. After voiding, the urinary bladder measured 2.4 x 1.2 x 4.6 cm, for an estimated volume of 6.7 mL. IMPRESSION: 1. Mild left hydronephrosis. Otherwise unremarkable retroperitoneal ultrasound. If further imaging is desired, CT could be performed. 2. Post void bladder residual of 6.7 mL. Assessment & Plan Assessment & Plan (1) Microscopic hematuria: Code(s): R31.29 - Other microscopic hematuria Category: Medical (2) Urinary incontinence: Code(s): R32 - Unspecified urinary incontinence Category: Medical (3) Urinary urgency: Code(s): R39.15 - Urgency of urination Category: Medical Plan Results - Cystoscopy: Mild bladder wall thickening and prominent vasculature observed. Plan - Schedule follow-up with nurse practitioner in 10 months for ongoing monitoring. Orders: Orders AMB Cystoscopy 03/02/25 N39.0 - Urinary tract infection, site not specified AMB Urinalysis Automated 03/02/25 Z13.9 - Encounter for screening, unspecified Patient Instructions: This note is constructed using voice recognition software. While every effort has been made to ensure accuracy head tennis professional errors may have been included. Scribe Plan - Not visible on output: Patient was informed and verbally consented to the use of an ambient scribe for clinic note documentation during this visit. Coding Level of Care Code Procedure Only Diagnoses Microscopic hematuria R31.29 Urinary incontinence R32 Urinary urgency R39.15 CPT Codes Cystoscopy - CPT: 64560-[id number] ([id number])
== END 2025-03-02 15:22 | disposition home or self-care (01) ==
LOC: HO.HUSH 14:13
PROVIDERS: PCP Internal Medicine; Visit Provider Urology
DX: N39.0 Urinary tract infection, site not specified (principal)
CPT/HCPCS: 52000

== ENCOUNTER → 2025-03-02 14:13 | Outpatient (BNVA) | payer MEDICARE, SELFPAY | PROVIDERS: PCP Internal Medicine; Visit Provider Urology | DX: R32 Unspecified urinary incontinence (principal); R39.15 Urgency of urination; R31.29 Other microscopic hematuria; N32.89 Other specified disorders of bladder; Z13.9 Encounter for screening, unspecified; Z87.440 Personal history of urinary (tract) infections | CPT/HCPCS: 52000; 81003 ==